=== PATIENT | male | born 1955 ===

== ENCOUNTER 2021-09-12 07:06 | Day surgery (SDC) | payer OTHER ==
[~2021-09-12 07:06] MED LIST: ATORVASTATIN CA20 MG PO; BENICAR40 MG PO; SYNTHROID88 MCG PO; TOPROL XL100 M1 PO; [UNRECOGNIZED DRUG - OTHER] PO
== END 2021-09-12 14:35 | disposition home or self-care (01) ==
LOC: CIR.AMB 07:06
PROVIDERS: ATTEND Orthopaedic Surgery
DX: G56.22 Lesion of ulnar nerve, left upper limb (principal); G62.9 Polyneuropathy, unspecified